=== PATIENT | female | born 1980 | race American Indian/Alaskan Native ===

== ENCOUNTER 2020-03-23 21:32 | Emergency (ER) | payer SELFPAY ==
[2020-03-23 23:13] VITALS: BP 168/90
[2020-03-24] MEDS ORDERED: IBUPROFEN 800 MG TAB PO ONE (01:08)
[2020-03-24] MEDS ORDERED: dexAMETHasone 20 MG/5 ML VIAL IM ONE (01:08)
--- NOTE | 2020-03-24 01:38 | Emergency Department Report ---
ED Eye Problem HPI - General Chief complaint: Eye Problems Stated complaint: POSS INFECTION LF EYE Source: patient Mode of arrival: Ambulatory Limitations: No Limitations - History of Present Illness Initial comments: Patient is a 40-year-old -[place] female with a history of obesity who presents to the ED with complaint of acute onset persistent nontraumatic left eye pain with redness, tearing and matting and purulent discharge for the last 2 days. Patient states that she purchased an [id number] eyedrop for pinkeye that she has been applying onto the left eye for the last 2 days with no relief at all. Patient denies vision loss, dizziness, headache, fever, chills, cough, nasal and sinus congestion, nausea and vomiting, cough, sore throat or neck pain and traumatic injury. MD chief complaint: eye pain (left), eye redness (left) -: Sudden, days(s) (2) Onset Description: sudden Location: left eye Place: home If Injury: none Eye Symptoms: burning, redness, pain, discharge, photophobia Severity: severe Severity scale (0 -10): 7 If Pain, Quality: sharp, burning, aching Consistency: constant Associated Symptoms: none. denies: headache, neck pain, nausea/vomiting, cough, rhinorrhea, fever, shortness of breath, other Treatments Prior to Arrival: OTC eye drops - Related Data Patient Tetanus UTD: Yes Previous Rx's Medication Instructions Recorded Last Taken Type Ibuprofen [Motrin] 800 mg PO Q8HR PRN #24 tablet 03/24/20 Unknown Rx Tobramycin/Dexamethasone [Tobradex 1 - 2 drop OP Q6HR #5 ml 03/24/20 Unknown Rx Eye Drops 0.3/0.1%] Allergies Allergy/AdvReac Type Severity Reaction Status Date / Time No Known Allergies Allergy Unverified 03/23/20 23:13 ED Review of Systems ROS: Stated complaint: POSS INFECTION LF EYE Other details as noted in HPI Comment: Unobtainable due to pts medical conditions Constitutional: denies: chills, fever Eyes: eye pain (left ), eye discharge (left). denies: vision change ENT: denies: ear pain, throat pain Respiratory: denies: cough, shortness of breath, wheezing Cardiovascular: denies: chest pain, palpitations Endocrine: no symptoms reported Gastrointestinal: denies: abdominal pain, nausea, diarrhea Genitourinary: denies: urgency, dysuria, discharge Musculoskeletal: denies: back pain, joint swelling, arthralgia Skin: denies: rash, lesions Neurological: denies: headache, weakness, paresthesias Psychiatric: denies: anxiety, depression Hematological/Lymphatic: denies: easy bleeding, easy bruising ED Past Medical Hx - Past Medical History Previous Medical History?: No - Surgical History Past Surgical History?: No - Social History Smoking Status: Current Every Day Smoker - Medications Home Medications: Home Medications Medication Instructions Recorded Confirmed Last Taken Type Ibuprofen [Motrin] 800 mg PO Q8HR PRN #24 tablet 03/24/20 Unknown Rx Tobramycin/Dexamethasone [Tobradex 1 - 2 drop OP Q6HR #5 ml 03/24/20 Unknown Rx Eye Drops 0.3/0.1%] ED Physical Exam - General Limitations: No Limitations General appearance: alert, in no apparent distress - Head Head exam: Present: atraumatic, normocephalic, normal inspection - Eye Eye exam: Present: normal appearance, PERRL, EOMI, other (Erythematous left conjunctiva with purulent discharge and matting) Pupils: Present: normal accommodation - ENT ENT exam: Present: normal exam, normal orophraynx, mucous membranes moist, TM's normal bilaterally, normal external ear exam - Neck Neck exam: Present: normal inspection, full ROM. Absent: tenderness, meningismus, lymphadenopathy, thyromegaly - Respiratory Respiratory exam: Present: normal lung sounds bilaterally. Absent: respiratory distress, wheezes, rales, rhonchi, chest wall tenderness, accessory muscle use, decreased breath sounds, prolonged expiratory - Cardiovascular Cardiovascular Exam: Present: regular rate, normal rhythm, normal heart sounds. Absent: systolic murmur, diastolic murmur, rubs, gallop - GI/Abdominal GI/Abdominal exam: Present: soft, normal bowel sounds. Absent: distended, tenderness, guarding, hyperactive bowel sounds, hypoactive bowel sounds, mass, bruit - Extremities Exam Extremities exam: Present: normal inspection, full ROM, normal capillary refill - Back Exam Back exam: Present: normal inspection, full ROM. Absent: tenderness, CVA tenderness (R), CVA tenderness (L), muscle spasm, paraspinal tenderness, vertebral tenderness, rash noted - Neurological Exam Neurological exam: Present: alert, oriented X3, CN II-XII intact, normal gait, reflexes normal - Psychiatric Psychiatric exam: Present: normal affect, normal mood - Skin Skin exam: Present: warm, dry, intact, normal color. Absent: rash ED Course Vital Signs 03/23/20 23:06 Temperature 98.4 F Pulse Rate 85 Respiratory 18 Rate Blood Pressure 168/90 O2 Sat by Pulse 100 Oximetry ED Medical Decision Making - Medical Decision Making This is a 40-year-old -[place] female with a history of obesity who presents to the ED with complaint of acute onset persistent nontraumatic left eye pain with redness, tearing and matting and purulent discharge for the last 2 days. Patient states that she purchased an [id number] eyedrop for pinkeye that she has been applying onto the left eye for the last 2 days with no relief at all. In the ED, patient is alert and oriented x3 and is not in distress but appears to be in pain. Patient was treated for pain in the ED and was discharged home on medications including antibiotic eyedrops. Patient was advised to follow-up with her primary care physician in 7 to 10 days for reevaluation or return to the ED immediately if symptoms get worse. - Differential Diagnosis bacterial conjunctivitis; Keratitis; Viral conjunctivitis Critical care attestation.: If time is entered above; I have spent that time in minutes in the direct care o f this critically ill patient, excluding procedure time. ED Disposition Clinical Impression: Acute bacterial conjunctivitis of left eye Disposition: DC-01 TO HOME OR SELFCARE Is pt being admited?: No Does the pt Need Aspirin: No Condition: Stable Instructions: Conjunctivitis (ED) Additional Instructions: Apply the medication to the affected eye as advised, take medications for pain as needed. Follow-up with your primary care physician in 5 to 7 days for reevaluation or return to the ED immediately if symptoms get worse. Prescriptions: Ibuprofen [Motrin] 800 mg PO Q8HR PRN #24 tablet PRN Reason: Pain , Severe (7-10) Tobramycin/Dexamethasone [Tobradex Eye Drops 0.3/0.1%] 1 - 2 drop OP Q6HR #5 ml Referrals: [facility] [Provider Group] - 3-5 Days Forms: Work/School Release Form(ED) Time of Disposition: 01:39 Print Language: AUSTRIAN
== END 2020-03-24 02:15 | disposition home or self-care (01) ==
LOC: ED 21:32
DX: H10.32 Unspecified acute conjunctivitis, left eye (principal); F17.200 Nicotine dependence, unspecified, uncomplicated; Z79.1 Long term (current) use of non-steroidal anti-inflammatories (NSAID); Z79.899 Other long term (current) drug therapy
CPT/HCPCS: 96372; 99282; J1100

== ENCOUNTER 2021-02-18 15:52 | Emergency (ER) | payer SELFPAY ==
[2021-02-18] MEDS ORDERED: ACETAMINOPHEN 500 MG TAB PO ONE (20:27)
== END 2021-02-18 20:42 | disposition left against medical advice (07) ==
LOC: ED 15:52
DX: Z00.8 Encounter for other general examination (principal); Z53.21 Procedure and treatment not carried out due to patient leaving prior to being seen by health care provider

== ENCOUNTER 2021-08-03 00:25 | Emergency (ER) | payer SELFPAY ==
[2021-08-03 00:33] VITALS: BP 111/84
[2021-08-03] MEDS ORDERED: predniSONE 20 MG TAB PO ONE (01:08)
[2021-08-03] MEDS ORDERED: CYCLOBENZAPRINE 10 MG TAB PO ONE (01:08)
[2021-08-03] MEDS ORDERED: KETOROLAC 60 MG/2 ML INJ IM ONE (01:08)
[2021-08-03 02:13] LABS: Bilirubin,Urine NEG (Negative); Blood,Urine LG (Negative); Color,Urine Yellow (Yellow); Mucus,Urine FEW /HPF; Urobilinogen,Urine < 2.0 mg/dL (<2.0)
[2021-08-03 02:16] LABS: HCG Qualitative,Urine Negative (Negative)
--- NOTE | 2021-08-03 02:55 | Cat Scan Report ---
CT ABDOMEN AND PELVIS WITHOUT CONTRAST INDICATION / CLINICAL INFORMATION: Bi-Lateral flank / back pain x 2 weeks. TECHNIQUE: Axial CT images were obtained through the abdomen and pelvis without IV contrast. All CT scans at this location are performed using CT dose reduction for ALARA by means of automated exposure control. COMPARISON: None available. FINDINGS: LOWER CHEST: No significant abnormality LIVER: No significant abnormality GALLBLADDER/BILIARY TREE: No significant abnormality PANCREAS: No significant abnormality SPLEEN: No significant abnormality ADRENALS: No significant abnormality KIDNEYS / URETER: No significant abnormality. No ureteral tract calculi or hydronephrosis. URINARY BLADDER: Bladder is partially decompressed, though grossly unremarkable. REPRODUCTIVE ORGANS: 4 cm right ovarian cyst. Uterus is unremarkable. No discrete mass in the left ad nexa. STOMACH / BOWEL: Small bowel is normal in caliber. The colon is unremarkable. The appendix is normal in caliber. LYMPH NODES: No significant adenopathy. VASCULATURE: No significant abnormality. OTHER: No free air, free fluid, or focal fluid collection is identified. SKELETAL SYSTEM: Degenerative changes of the spine. No acute osseous findings. IMPRESSION: 1. No acute abnormality of the abdomen or pelvis. 2. 4 cm right ovarian cyst. This is most certainly benign. No routine further follow-up is required. 3. No ureteral tract calculi or hydronephrosis Signer Name: Heron García MD Signed: 08/03/2021 2:50 AM Workstation Name: [id number]
--- NOTE | 2021-08-03 03:15 | Emergency Department Report ---
ED Back Pain/Injury HPI - General Chief Complaint: Back Pain/Injury Stated Complaint: SIDE/BACK PAIN Time Seen by Provider: 08/03/21 00:58 Source: patient Limitations: No Limitations - History of Present Illness Initial Comments: This is a 41-year-old female nontoxic, well nourished in appearance, no acute signs of distress presents to the ED with c/o of left flank/lower back pain x2 weeks. 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 Patient denies any radiation of pain. Patient denies any injuries or trauma. Denies any bladder or bowel instability. Patient denies any urinary symptoms. Denies any fever, chills, nausea, vomiting, headache, stiff neck, chest pain or shortness of breath. Patient denies any numbness or t ingling. Denies any allergies. Denies significant past medical history. Patient stated she is currently on her menstrual cycle. MD Complaint: back pain -: week(s) Similar Symptoms Previously: Yes Radiation: none Severity: mild Severity scale (0 -10): 8 Quality: aching Consistency: intermittent Improves With: immobilization, sitting upright Worsens With: movement, walking Associated Symptoms: denies other symptoms. denies: confusion, weakness, chest pain, numbness, difficulty walking, cough, difficulty urinating, diaphoresis, incontinence, fever/chills, constipation, headaches, abdominal pain, loss of appetite, malaise, nausea/vomiting, rash, seizure, shortness of breath, syncope - Related Data Previous Rx's Medication Instructions Recorded Last Taken Type Ibuprofen [Motrin] 800 mg PO Q8HR PRN #24 tablet 03/24/20 Unknown Rx Tobramycin/Dexamethasone [Tobradex 1 - 2 drop OP Q6HR #5 ml 03/24/20 Unknown Rx Eye Drops 0.3/0.1%] Loratadine [Claritin] 10 mg PO DAILY #30 tablet 03/29/20 Unknown Rx Polymyxin B Sulf/Trimethoprim 2 drops OD TID #1 drops 03/29/20 Unknown Rx [Polytrim Eye Drops] Cyclobenzaprine [Flexeril] 10 mg PO QHS PRN #10 tablet 08/03/21 Unknown Rx Naproxen 500 mg PO Q12H PRN #12 tablet 08/03/21 Unknown Rx Allergies Allergy/AdvReac Type Severity Reaction Status Date / Time No Known Allergies Allergy Verified 08/03/21 00:29 ED Review of Systems ROS: Stated complaint: SIDE/BACK PAIN Other details as noted in HPI Comment: All other systems reviewed and negative Constitutional: denies: chills, fever Eyes: denies: eye pain, eye discharge, vision change ENT: denies: ear pain, throat pain Respiratory: denies: cough, shortness of breath, wheezing Cardiovascular: denies: chest pain, palpitations Endocrine: no symptoms reported Gastrointestinal: denies: abdominal pain, nausea, diarrhea Genitourinary: denies: urgency, dysuria, discharge Musculoskeletal: back pain. denies: joint swelling, arthralgia Skin: denies: rash, lesions Neurological: denies: headache, weakness, paresthesias Psychiatric: denies: anxiety, depression Hematological/Lymphatic: denies: easy bleeding, easy bruising ED Past Medical Hx - Past Medical History Previous Medical History?: No - Surgical History Past Surgical History?: No - Social History Smoking Status: Never Smoker Substance Use Type: None - Medications Home Medications: Home Medications Medication Instructions Recorded Confirmed Last Taken Type Ibuprofen [Motrin] 800 mg PO Q8HR PRN #24 tablet 03/24/20 Unknown Rx Tobramycin/Dexamethasone [Tobradex 1 - 2 drop OP Q6HR #5 ml 03/24/20 Unknown Rx Eye Drops 0.3/0.1%] Loratadine [Claritin] 10 mg PO DAILY #30 tablet 03/29/20 Unknown Rx Polymyxin B Sulf/Trimethoprim 2 drops OD TID #1 drops 03/29/20 Unknown Rx [Polytrim Eye Drops] Cyclobenzaprine [Flexeril] 10 mg PO QHS PRN #10 tablet 08/03/21 Unknown Rx Naproxen 500 mg PO Q12H PRN #12 tablet 08/03/21 Unknown Rx ED Physical Exam - General Limitations: No Limitations General appearance: alert, in no apparent distress - Head Head exam: Present: atraumatic, normocephalic - Eye Eye exam: Present: normal appearance - ENT ENT exam: Present: normal exam - Neck Neck exam: Present: normal inspection, full ROM. Absent: lymphadenopathy - Respiratory Respiratory exam: Present: normal lung sounds bilaterally. Absent: respiratory distress, wheezes, rales, rhonchi, stridor, chest wall tenderness, accessory muscle use, decreased breath sounds, prolonged expiratory - Cardiovascular Cardiovascular Exam: Present: regular rate, normal rhythm, normal heart sounds. Absent: bradycardia, tachycardia, irregular rhythm, systolic murmur, diastolic murmur, rubs, gallop - GI/Abdominal GI/Abdominal exam: Present: soft. Absent: distended, tenderness - Extremities Exam Extremities exam: Present: full ROM - Back Exam Back exam: Present: normal inspection, full ROM, CVA tenderness (L), paraspinal tenderness (Left thoracic and lumbar paraspinal). Absent: tenderness, CVA te nderness (R), muscle spasm, vertebral tenderness, rash noted - Expanded Back Exam Expanded Back exam: Absent: saddle anesthesia Back exam: Negative Straight Leg Raising: Left, Right - Neurological Exam Neurological exam: Present: alert, oriented X3, normal gait - Psychiatric Psychiatric exam: Present: normal affect, normal mood - Skin Skin exam: Present: warm, dry, intact, normal color. Absent: rash ED Course Vital Signs 08/03/21 00:29 Temperature 98.1 F Pulse Rate 80 Respiratory 17 Rate Blood Pressure 111/84 [Right] O2 Sat by Pulse 100 Oximetry - Reevaluation(s) Reevaluation #1: 08/03/21 03:13 Patient is speaking in full sentences with no signs of distress noted. ED Medical Decision Making - Lab Data Lab Results 08/03/21 Range/Units 01:52 Urine Color Yellow (Yellow) Urine Turbidity Clear (Clear) Urine pH 5.0 (5.0-7.0) Ur Specific [place] 1.028 (1.003-1.030) Urine Protein 30 mg/dl (Negative) mg/dL Urine Glucose (UA) Neg (Negative) mg/dL Urine Ketones Neg (Negative) mg/dL Urine Blood Lg (Negative) Urine Nitrite Neg (Negative) Urine Bilirubin Neg (Negative) Urine Urobilinogen < 2.0 (<2.0) mg/dL Ur Leukocyte Esterase Neg (Negative) Urine WBC (Auto) 1.0 (0.0-6.0) /HPF Urine RBC (Auto) 6.0 (0.0-6.0) /HPF U Epithel Cells (Auto) 5.0 (0-13.0) /HPF Urine Mucus Few /HPF Urine HCG, Qual Negative (Negative) - Radiology Data [facility] [address] [place] [address] Cat Scan Report Signed Patient: MAXI ROBIN MR#: [id number] : 1980 Acct:[id number] Age/Sex: 41 / F ADM Date: 08/03/21 Loc: ED Attending Dr: Ordering Physician: STEFANIE JOHNSON NP Date of Service: 08/03/21 Procedure(s): CT abdomen pelvis wo con Accession Number(s): [id number] cc: STEFANIE JOHNSON NP CT ABDOMEN AND PELVIS WITHOUT CONTRAST INDICATION / CLINICAL INFORMATION: Bi-Lateral flank / back pain x 2 weeks. TECHNIQUE: Axial CT images were obtained through the abdomen and pelvis without IV contrast. All CT scans at this location are performed using CT dose reduction for ALARA by means of automated exposure control. COMPARISON: None available. FINDINGS: LOWER CHEST: No significant abnormality LIVER: No significant abnormality GALLBLADDER/BILIARY TREE: No significant abnormality PANCREAS: No significant abnormality SPLEEN: No significant abnormality ADRENALS: No significant abnormality KIDNEYS / URETER: No significant abnormality. No ureteral tract calculi or hydronephrosis. URINARY BLADDER: Bladder is partially decompressed, though grossly unremarkable. REPRODUCTIVE ORGANS: 4 cm right ovarian cyst. Uterus is unremarkable. No discrete mass in the left adnexa. STOMACH / BOWEL: Small bowel is normal in caliber. The colon is unremarkable. The appendix is normal in caliber. LYMPH NODES: No significant adenopathy. VASCULATURE: No significant abnormality. OTHER: No free air, free fluid, or focal fluid collection is identified. SKELETAL SYSTEM: Degenerative changes of the spine. No acute osseous findings. IMPRESSION: 1. No acute abnormality of the abdomen or pelvis. 2. 4 cm right ovarian cyst. This is most certainly benign. No routine further follow-up is required. 3. No ureteral tract calculi or hydronephrosis Signer Name: Baldemar García MD Signed: 08/03/2021 2:50 AM Workstation Name: [id number] Transcribed By: LARISSA Dictated By: BALDEMAR GARCÍA MD Electronically Authenticated By: BALDEMAR GARCÍA MD Signed Date/Time: 08/03/21249 DD/ 6 TD/TT: - Medical Decision Making This is a 41-year-old female that presents with low back strain. Patient is stable was examined by me. There is no spinal tenderness. There is no cauda equina syndrome during examination. No bladder or bowel instability. UA has been obtained with no UTI but there was large blood. Uncertain if this was a kidney stone versus menstrual cycle. Patient is notified of the CT results with no questions noted by the patient. Patient received Toradol, prednisone and Flexeril in the ED which stated that her symptoms has resolved and subsided. Patient is discharged with muscle relaxant and Motrin. Patient was instructed not to operate any machinery while taking muscle relaxant as they cause her drowsiness. Patient was referred to Follow-up with a primary care doctor in 3-5 days or if symptoms worsen and continue return to emergency room as soon as possible. At time of discharge, the patient does not seem toxic or ill in appearance. No acute signs of distress noted. Patient agrees to discharge treatment plan of care. No further questions noted by the patient. This chart is dictated with using [employer] Critical care attestation.: If time is entered above; I have spent that time in minutes in the direct care of this critically ill patient, excluding procedure time. ED Disposition Clinical Impression: Low back strain Qualifiers: Encounter type: initial encounter Qualified Code(s): S39.012A - Strain of muscle, fascia and tendon of lower back, initial encounter Degenerative arthritis of lumbar spine Qualifiers: Spinal osteoarthritis complication: unspecified spinal osteoarthritis Qualified Code(s): M47.816 - Spondylosis without myelopathy or radiculopathy, lumbar region Disposition: 01 HOME / SELF CARE / HOMELESS Is pt being admited?: No Does the pt Need Aspirin: No Condition: Stable Instructions: Degenerative Disk Disease, Cyclobenzaprine tablets Additional Instructions: Follow-up with your primary care doctor in 3-5 days or if symptoms worsen such as bladder or bowel stability, chest pain, short of breath, numbness or tingling sensation in extremities, headache, dizziness, visual changes, nausea vomiting, or abdominal pain, return back to emergency room as was possible. Take naproxen and Flexeril as prescribed. Do not operate heavy machinery while taking Flexeril due to sedation Prescriptions: Cyclobenzaprine [Flexeril] 10 mg PO QHS PRN #10 tablet PRN Reason: Muscle Spasm Naproxen 500 mg PO Q12H PRN #12 tablet PRN Reason: Pain , Severe (7-10) Referrals: PRIMARY CARE,MD [Primary Care Provider] - 3-5 Days SHILO ATKINS MD [Staff Physician] - 3-5 Days Forms: Work/School Release Form(ED) Time of Disposition: 03:17
[2021-08-04] MEDS ORDERED: SODIUM CHLORIDE 0.9% 1000 ML 1,000 ML ONE (02:33)
== END 2021-08-04 23:59 | disposition home or self-care (01) ==
LOC: ED 00:25
DX: S39.012A Strain of muscle, fascia and tendon of lower back, initial encounter (principal); M51.36 Other intervertebral disc degeneration, lumbar region; Z79.899 Other long term (current) drug therapy; X50.0XXA Overexertion from strenuous movement or load, initial encounter; Y93.89 Activity, other specified; Y92.89 Other specified places as the place of occurrence of the external cause; Y99.8 Other external cause status
CPT/HCPCS: 74176; 81001; 81025; 96372; 99284; J1885; J7030; J7512; Q0162